=== PATIENT | male | born 1990 | race Caucasian/White ===

== ENCOUNTER 2017-01-31 17:50 | Emergency (ER) | payer OTHER, SELFPAY ==
[2017-01-31] MEDS ORDERED: TETRACAINE 0.5% STERI-UNIT SOL OP STA (18:02)
[2017-01-31] MEDS ORDERED: Fluor-I-Strip/Ful-Flo OP ONE ×2 (18:03→18:05)
[2017-01-31] MEDS ORDERED: TETRACAINE 0.5% STERI-UNIT SOL OP ONE (18:03)
[2017-01-31] MEDS ORDERED: Adacel Vial IM ONE ×2 (18:08→18:12)
--- NOTE | 2017-01-31 18:14 | ERPHSYRPT ---
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, +tearing, +photosen, no other injury, not work related, seen at [facility] earlier for fb removal, pt does not wear contacts (TUSHAR BYRD) Allergies/Adverse Reactions: trazodone Allergy (Intermediate, Verified 01/31/17 18:02) Hives Home Medications: Ciprofloxacin 0.3% Ophth [Ciloxan OPHTH] 2.5 ml OP BID 01/31/17 [History] - Review of Systems Constitutional: No Fever Eyes: Eye Pain, Eye Redness, Photophobia, Tearing Respiratory: No Symptoms Neurological: No Symptoms, No Dizziness, No Headache <TUSHAR BYRD - Last Filed: 01/31/17 18:24> - Past Medical History Pertinent Past Medical History: Yes Neurological History: No Pertinent History ENT History: No Pertinent History Cardiac History: No Pertinent History Respiratory History: No Pertinent History Endocrine Medical History: No Pertinent History Musculoskeletal History: No Pertinent History GI Medical History: No Pertinent History History: No Pertinent History Psycho-Social History: No Pertinent History Male Reproductive Disorders: No Pertinent History Other Medical History: bacterial meningitis 7 years to ago. PNEUMONIA - Past Surgical History Past Surgical History: Yes Neuro Surgical History: No Pertinent History Cardiac: No Pertinent History Gastrointestinal: No Pertinent History Genitourinary: No Pertinent History Musculoskeletal: Orthopedic Surgery Male Surgical History: No Pertinent History Other Surgical History: right ankle surgery. T/A - Social History Smoking Status: Current every day smoker How long have you smoked: 6 years Exposure to second hand smoke: Yes Drug Use: none Patient Lives Alone: No Significant Family History: no pertinent family hx <TUSHAR BYRD - Last Filed: 01/31/17 18:24> - Physical Exam General Appearance: no apparent distress Neurologic Exam: other (+left scleral injection, tetracaine exam w/ fluorescin shows central corneal ulcer, no fb seen on cornea or lid recesses, no hyphema, eomi, perrl) <TUSHAR BYRD - Last Filed: 01/31/17 18:24> - Physical Exam Neurologic Exam: other <SEA ADAMES - Last Filed: 01/31/17 20:00> - Nursing Vital Signs Nursing Vital Signs: Initial Vital Signs Temperature 98.9 F 01/31/17 17:59 Pulse Rate 103 H 01/31/17 17:59 Respiratory Rate 18 01/31/17 17:59 Blood Pressure 148/90 01/31/17 17:59 O2 Sat by Pulse Oximetry 97 01/31/17 17:59 Ordered Tests: Active Orders 24 hr Category Date Time Status Visual Acuity STAT Care 01/31/17 18:03 Active HEAD WITHOUT CONTRAST [CT] Stat Exams 01/31/17 18:08 Taken Medication Summary Discontinued Medications Generic Name Dose Route Start Last Admin Trade Name Freq PRN Reason Stop Dose Admin Cyclopentolate HCl 2 ml 01/31/17 19:47 Cyclogyl 1% Eye Drops OP 01/31/17 19:48 STAT ONE Cyclopentolate HCl Confirm 01/31/17 19:49 Cyclogyl 1% Eye Drops Administered 01/31/17 19:50 Dose 2 ml OP .STK-MED ONE Diphtheria/Tetanus/Acell Pertussis 0.5 ml 01/31/17 18:08 01/31/17 18:15 Adacel Vial IM 01/31/17 18:09 0.5 ml .ONCE ONE Administration Diphtheria/Tetanus/Acell Pertussis Confirm 01/31/17 18:12 Adacel Vial Administered 01/31/17 18:13 Dose 0.5 ml IM .STK-MED ONE Fluorescein Sodium Confirm 01/31/17 18:03 Fgxaz-B-Czamr/Ful-Danilo Administered 01/31/17 18:04 Dose 1 mg OP .STK-MED ONE Fluorescein Sodium 1 mg 01/31/17 18:05 01/31/17 18:06 Dslnd-H-Huodb/Ful-Danilo OP 01/31/17 18:06 1 mg STAT ONE Administration Tetracaine HCl 4 ml 01/31/17 18:02 01/31/17 18:06 Tetracaine 0.5% Steri-Unit Dayanara OP 01/31/17 18:03 4 ml STAT STA Administration Tetracaine HCl Confirm 01/31/17 18:03 Tetracaine 0.5% Steri-Unit Dayanara Administered 01/31/17 18:04 Dose 4 ml OP .STK-MED ONE <TUSHAR BYRD - Last Filed: 01/31/17 18:24> - Progress Progress: improved Counseled pt/family regarding: diagnosis, need for follow-up, rad results (Pt was advised to follow up with Ophtalmologist in 1-2 days, to ensure proper healing of the central corneal ulcer. ) <SEA ADAMES - Last Filed: 01/31/17 20:00> - Progress Progress Note: 01/31/17 18:[address] Adames at 19:00 (TUSHAR BYRD) 01/31/17 19:52 CT head: negative, Pt was informed about results, he will follow p with [employer] in 1-2 days, return if severe pain or swelling. He was given [place] 5/325 mg tablets PO Q4h PRN (#10) also 1 drop of [place] and Tetracaine drop to left eye. (SEA ADAMES) <TUSHAR BYRD - Last Filed: 01/31/17 18:24> - Departure Time of Disposition: 20:00 Departure Disposition: Home Critical Care Time: No <SEA ADAMES - Last Filed: 01/31/17 20:00> - Departure Clinical Impression: Corneal ulcer of left eye Condition: Stable Referrals: AMBIKA LIM [Primary Care Provider] - STEFF HANNA OD [NON-STAFF PHY W/O PRIVILEGES] - Additional Instructions: Follow up with [employer] in 1-2 days, use eyedrops as directed, return if severe pain,m swelling, vomiting!
[2017-01-31 18:21] VITALS: BP 148/90; PULSE 103; O2SAT 97
[2017-01-31] MEDS ORDERED: Cyclogyl 1% EYE DROPS OP ONE ×2 (19:47→19:49)
--- NOTE | 2017-02-01 08:32 | XRAY ---
Indication: Left orbit erythema, swelling, and foreign body. Multiple contiguous axial images obtained through the head without contrast. Comparison: February 21, 2010. Again normal-appearing brain parenchyma, ventricles, and bony calvarium. Mild mucosal thickening of both ethmoid and left sphenoid sinuses. Mastoid air cells clear. No radiopaque foreign body. Impression: Again normal CT head without contrast exam. Incidental paranasal sinus disease. CT DI 69.25
== END 2017-01-31 20:09 | disposition home or self-care (01) ==
LOC: ED 17:50
DX: H16.002 Unspecified corneal ulcer, left eye (principal)
CPT/HCPCS: 70450; 90471; 90715; 99284